=== PATIENT | female | born 1960 | race Caucasian/White ===

== ENCOUNTER 2020-10-23 07:02 | Outpatient (REF) | payer OTHER, SELFPAY ==
[2020-10-23 07:26] LABS: Hematocrit 36.1 % (37-47); Hemoglobin 11.7 g/dl (12.0-16.0); Mean Corpuscular HGB Conc 32.4 g/dl (31.0-35.0); Mean Corpuscular Hemoglobin 30.4 pg (27.0-33.0); Mean Corpuscular Volume 93.8 fL (80-98); Platelet Count 328 X10*3/uL (160-400); Red Blood Count 3.85 X10*6/uL (4.20-5.50); White Blood Count 8.6 X10*3/uL (4.8-10.8)
[2020-10-23 08:04] LABS: Alanine Aminotransferase 7 U/L (0-31); Albumin Level 3.8 g/dL (3.5-5.0); Alkaline Phosphatase 76 U/L (39-117); Anion Gap 16 (12-20); Aspartate Amino Transferase 11 U/L (5-31); Bilirubin Total 0.9 mg/dL (0.0-1.0); Blood Urea Nitrogen 15 mg/dL (9-16); Calcium 9.9 mg/dL (8.4-10.2); Carbon Dioxide 25 mmol/L (22-29); Chloride 103 mmol/L (96-108); Estimated Glomerular Filt Rate 51; Glucose Random 269 mg/dL (60-115); Potassium 4.9 mmol/L (3.3-5.1); Sodium 139 mmol/L (135-145); Total Protein 6.4 g/dL (6.5-8.0)
== END 2020-10-23 07:03 | disposition home or self-care (01) ==
LOC: HO.MMNH1L 07:02
PROVIDERS: Visit Provider Family Medicine
DX: S82.002D Unspecified fracture of left patella, subsequent encounter for closed fracture with routine healing (principal)
CPT/HCPCS: 36415; 80053; 85027

== ENCOUNTER 2020-10-30 00:51 | Outpatient (REF) | payer OTHER, SELFPAY | END 2020-10-30 00:52 | disposition home or self-care (01) | LOC: HO.MMNH1L 00:51 | PROVIDERS: Visit Provider Family Medicine | DX: Z13.89 Encounter for screening for other disorder (principal) ==

== ENCOUNTER 2020-11-06 08:08 | Outpatient (REF) | payer OTHER, SELFPAY | END 2020-11-06 08:09 | disposition home or self-care (01) | LOC: HO.MMNH1L 08:08 | PROVIDERS: Visit Provider Family Medicine | DX: Z13.89 Encounter for screening for other disorder (principal) ==

== ENCOUNTER 2020-11-14 13:55 | Outpatient (REF) | payer OTHER, SELFPAY ==
--- NOTE | ~2020-11-14 | XR_ITS ---
EXAMINATION: XR HIP, LEFT CLINICAL INFORMATION: Hip arthritis. COMPARISON: None TECHNIQUE: AP pelvis and 2 views of the left hip. FINDINGS: There is no evidence of acute fracture or diastasis of the pelvis. There appears to be partial sacralization of L5. Changes of enthesopathy are seen about the iliac crests bilaterally as well as the greater trochanters bilaterally. Hip joint spaces are maintained. Two views of the left hip do not demonstrate any evidence of acute fracture or dislocation. Hip joint space is maintained. There is a sclerotic region seen either within or overlying the left femoral head which may lie within the femoral head or the acetabulum. This likely represents superimposition of anterior rim of the acetabulum rather than a true sclerotic lesion. No evidence of bony destruction identified. No abnormal lytic lesion is seen. No evidence of femoral head collapse. Spurring of the greater trochanter present. XR/XR hip LT w [id number] IMPRESSION: Changes of enthesopathy, as described, with calcific spurring of the greater trochanters seen bilaterally. No evidence of acute fracture or dislocation of the left hip. No destructive bony lesion appreciated.
== END 2020-11-14 13:56 | disposition home or self-care (01) ==
LOC: HO.XRAY 13:55
PROVIDERS: PCP Internal Medicine; Visit Provider Psychiatry & Neurology Neurology
DX: M19.90 Unspecified osteoarthritis, unspecified site (principal)
CPT/HCPCS: 73502

== ENCOUNTER 2021-03-20 12:51 | Outpatient (REF) | payer OTHER, SELFPAY ==
--- NOTE | ~2021-03-20 | MR_ITS ---
MR ANGIOGRAPHY BRAIN WITHOUT CONTRAST MRA NECK WITH AND WITHOUT CONTRAST CLINICAL INFORMATION: Cerebral microvascular disease. COMPARISON: None available. TECHNIQUE: Noncontrast [id number] MRA of the head and neck obtained there is additionally, a gadolinium infusion MRA of the neck is acquired following the administration of 10 mL of Gadavist intravenous contrast without complication. Vascular post-processing, including 2-dimensional and 3-dimensional reformatted images were created and reviewed on an independent workstation under concurrent physician supervision. Stenoses are graded per criteria similar to NASCET. FINDINGS: MRA HEAD: Expected flow-related signal seen in the major intracranial arteries. No focal flow-limiting stenosis, proximal large vessel occlusion, or discrete saccular intracranial aneurysm is identified. Small tapered infundibulum noted at the right superior cerebellar artery origin. MRA NECK: There is a classic configuration of the aortic arch. The vertebral arteries are codominant and widely patent from their ostia until their entry into the skull base. Both common and internal carotid arteries are normal in course and caliber. MR/MR angio neck wo/w con IMPRESSION: Unremarkable MRA of the head and neck.
--- NOTE | ~2021-03-20 | MR_ITS ---
MR ANGIOGRAPHY BRAIN WITHOUT CONTRAST MRA NECK WITH AND WITHOUT CONTRAST CLINICAL INFORMATION: Cerebral microvascular disease. COMPARISON: None available. TECHNIQUE: Noncontrast [id number] MRA of the head and neck obtained there is additionally, a gadolinium infusion MRA of the neck is acquired following the administration of 10 mL of Gadavist intravenous contrast without complication. Vascular post-processing, including 2-dimensional and 3-dimensional reformatted images were created and reviewed on an independent workstation under concurrent physician supervision. Stenoses are graded per criteria similar to NASCET. FINDINGS: MRA HEAD: Expected flow-related signal seen in the major intracranial arteries. No focal flow-limiting stenosis, proximal large vessel occlusion, or discrete saccular intracranial aneurysm is identified. Small tapered infundibulum noted at the right superior cerebellar artery origin. MRA NECK: There is a classic configuration of the aortic arch. The vertebral arteries are codominant and widely patent from their ostia until their entry into the skull base. Both common and internal carotid arteries are normal in course and caliber. MR/MR angio head wo con IMPRESSION: Unremarkable MRA of the head and neck.
[2021-03-20 13:39] LABS: Blood Urea Nitrogen 20 mg/dL (9-16); Estimated Glomerular Filt Rate 52
== END 2021-03-20 12:52 | disposition home or self-care (01) ==
LOC: HO.XRAY 12:51
PROVIDERS: Visit Provider Psychiatry & Neurology Neurology
DX: I67.9 Cerebrovascular disease, unspecified (principal); I63.9 Cerebral infarction, unspecified
CPT/HCPCS: 36415; 70544; 70549; 82565; 84520; A9585